=== PATIENT | female | born 1975 | race Caucasian/White ===

== ENCOUNTER 2017-02-13 12:28 | Emergency (ER) | payer OTHER ==
[~2017-02-13] VITALS: Ht 170.2 cm; Wt 96.7 kg
[~2017-02-13 12:28] MED LIST: ABILIFY10 MG PO; ABILIFY5 MG PO; AMBIEN CR12.5 MG PO; AMBIEN5 MG PO; COGENTIN2 MG PO; CYMBALTA20 MG PO; DESYREL300 MG PO; EFFEXOR XR150 MG PO; EFFEXOR XR37.5 MG PO; FENOFIBRATE145 M1 PO; FLONASE16 G1 BOTH NARES; INDERAL20 MG PO; INDERAL40 MG PO; NAPROSYN500 MG PO; NAPROXEN500 MG PO; OMEPRAZOLE40 M1 PO; PIN-X250 MG PO; TOPAMAX100 MG; TOPAMAX200 MG PO; TRAZODONE HCL100 MG PO; TRAZODONE HCL50 MG PO; VITAMIN D31000 UNI2 PO
[2017-02-13 12:39] VITALS: BP 160/90
[2017-02-13] MEDS ORDERED: NORCO 7.5/321 TABLET PO (14:08)
[2017-02-13] MEDS ORDERED: MOTRIN800 MG PO (14:08)
[2017-02-13] MEDS ORDERED: VALIUM5 MG PO (14:08)
== END 2017-02-13 14:14 | disposition home or self-care (01) ==
LOC: EME 12:28
DX: S16.1XXA Strain of muscle, fascia and tendon at neck level, initial encounter (principal); S29.012A Strain of muscle and tendon of back wall of thorax, initial encounter; V43.62XA Car passenger injured in collision with other type car in traffic accident, initial encounter; Y92.414 Local residential or business street as the place of occurrence of the external cause; E78.5 Hyperlipidemia, unspecified; Z88.0 Allergy status to penicillin
CPT/HCPCS: 99281; 99284

== ENCOUNTER 2017-09-18 00:33 | Emergency (ER) | payer OTHER ==
[~2017-09-18] VITALS: Ht 170.2 cm; Wt 92.7 kg
[~2017-09-18 00:33] MED LIST changes: +MOTRIN800 MG PO; +NORCO 7.5/321 TABLET PO; +VALIUM5 MG PO
[2017-09-18 00:50] LABS: HEMATOCRIT 32.8 % (36.0-46.0); HEMOGLOBIN 10.5 G/DL (11.9-15.5); MCH 27.9 PG (29.0-34.0); MCV 87.2 FL (83-99); PLATELET COUNT 274 K/uL (156-360); RBC DIS.WIDTH-CV 14.6 % (11.8-14.6); RBC DIS.WIDTH-SD 47.3 % (39-53); RED BLOOD COUNT 3.76 M/uL (3.80-5.20); WHITE BLOOD COUNT 9.8 K/uL (4.1-10.2)
[2017-09-18 00:59] LABS: CHLORIDE 103 mEq/L (99-109); POTASSIUM 3.8 mEq/L (3.7-5.4); SODIUM 140 mEq/L (136-147)
[2017-09-18 01:00] LABS: GLUCOSE 142 mg/dL (70-99)
[2017-09-18 01:04] LABS: CREATININE 0.8 mg/dL (0.6-1.3); GFR ESTIMATE (CALCULATED) > 59 mL/min/
[2017-09-18 01:05] LABS: UREA NITROGEN (BUN) 6 mg/dL (9-23)
[2017-09-18 01:11] LABS: TROP-I INTERPRETATION NEGATIVE; TROPONIN-I < 0.01 ng/mL (0.0-0.30)
[2017-09-18 02:18] LABS: ALBUMIN 4.3 g/dL (3.2-4.8)
[2017-09-18 02:20] LABS: TOTAL PROTEIN 7.9 g/dL (6.4-8.3)
[2017-09-18 02:22] LABS: TOTAL BILIRUBIN 0.3 mg/dL (0.0-1.0)
[2017-09-18 02:23] LABS: ALKALINE PHOSPHATASE 127 IU/L (3-129)
[2017-09-18 02:26] LABS: ALT (GPT) 44 IU/L (3-49); AST (GOT) 51 IU/L (2-34); DIRECT BILIRUBIN 0.2 mg/dL (0.0-0.3)
[2017-09-18 02:27] LABS: LIPASE 124 U/L (1.0-51.0)
[2017-09-18] MEDS ORDERED: MEDROL DOSEPAK4 MG PO (03:28)
[2017-09-18 03:36] VITALS: BP 114/77
== END 2017-09-18 03:36 | disposition home or self-care (01) ==
LOC: EME 00:33
PROVIDERS: Emergency Medicine
DX: M54.2 Cervicalgia (principal); R07.89 Other chest pain; M25.512 Pain in left shoulder; R68.84 Jaw pain; R00.0 Tachycardia, unspecified; R06.00 Dyspnea, unspecified; Z82.49 Family history of ischemic heart disease and other diseases of the circulatory system; I10 Essential (primary) hypertension; Z88.0 Allergy status to penicillin; F17.200 Nicotine dependence, unspecified, uncomplicated
CPT/HCPCS: 71046; 80048; 80076; 83690; 84484; 85027; 85379; 93005; 99281; 99285; J1885; J7030

== ENCOUNTER 2018-02-12 01:11 | Emergency (ER) | payer OTHER ==
[~2018-02-12] VITALS: Ht 170.2 cm; Wt 97.6 kg
[~2018-02-12 01:11] MED LIST changes: +MEDROL DOSEPAK4 MG PO
[2018-02-12 01:41] LABS: HEMATOCRIT 30.2 % (36.0-46.0); HEMOGLOBIN 9.9 G/DL (11.9-15.5); MCH 28.1 PG (29.0-34.0); MCHC 32.8 G/DL (30.0-36.0); MCV 85.8 FL (83-99); PLATELET COUNT 294 K/uL (156-360); RBC DIS.WIDTH-CV 14.1 % (11.8-14.6); RBC DIS.WIDTH-SD 43.9 % (39-53); RED BLOOD COUNT 3.52 M/uL (3.80-5.20); WHITE BLOOD COUNT 13.4 K/uL (4.1-10.2)
[2018-02-12 02:02] LABS: ALBUMIN 4.2 G/DL (3.2-4.8); ALKALINE PHOSPHATASE 124 IU/L (3-129); ALT (GPT) 26 IU/L (3-49); AST (GOT) 43 IU/L (2-34); CHLORIDE 100 MEQ/L (99-109); GFR ESTIMATE (CALCULATED) > 59 mL/min/; GLUCOSE 194 mg/dL (70-99); POTASSIUM 4.3 MEQ/L (3.7-5.4); SODIUM 135 MEQ/L (136-147); TOTAL BILIRUBIN 0.3 MG/DL (0.0-1.0); TOTAL PROTEIN 7.5 G/DL (6.4-8.3); UREA NITROGEN (BUN) 9 mg/dL (9-23)
[2018-02-12 02:07] LABS: QUANTITATIVE HCG < 4.0 MIU/ML
[2018-02-12 02:26] LABS: APPEARANCE CLEAR ((CLEAR)); BILIRUBIN NEGATIVE; BLOOD NEGATIVE; COLOR STRAW ((YELLOW)); GLUCOSE (STRIP) NEGATIVE; KETONES NEGATIVE; LEUKOCYTES NEGATIVE; NITRITE NEGATIVE; PROTEIN (STRIP) NEGATIVE; SPECIFIC GRAVITY 1.005 (1.000-1.030); UCUL ADDED? NO; UROBILINOGEN 0.2 MG/DL (0.2-1.0)
[2018-02-12] MEDS ORDERED: COLACE100 MG PO (04:11)
[2018-02-12] MEDS ORDERED: MIRALAX17 GM PO (04:11)
[2018-02-12] MEDS ORDERED: MOXIFLOXACIN H400 MG PO (04:11)
[2018-02-12 04:55] VITALS: BP 127/82
== END 2018-02-12 05:15 | disposition home or self-care (01) ==
LOC: EME 01:11
DX: K52.9 Noninfective gastroenteritis and colitis, unspecified (principal); K59.00 Constipation, unspecified; E78.5 Hyperlipidemia, unspecified; I10 Essential (primary) hypertension; Z90.49 Acquired absence of other specified parts of digestive tract; Z88.0 Allergy status to penicillin; Z87.891 Personal history of nicotine dependence
CPT/HCPCS: 74177; 80053; 81003; 84702; 85027; 99281; 99285